=== PATIENT | male | born 1970 | race African-American/Black ===

== ENCOUNTER 2022-02-11 04:00 | Emergency (ER) | payer MEDICAID ==
[~2022-02-11] VITALS: Ht 185.4 cm; Wt 93.4 kg
[2022-02-11 04:03] VITALS: BP 133/53
--- NOTE | 2022-02-11 04:03 | NUR ---
Dr. Garay at Chair B to exam patient.
--- NOTE | 2022-02-11 04:03 | NUR ---
Patient BIB by Tahmina TILLMAN. C/O pre-book x today. Patient denies pain, no SOB, no N/V/D. PMHx; Denies, Sx: DENIES/
== END 2022-02-11 04:10 ==
LOC: MED 04:00
DX: F10.129 Alcohol abuse with intoxication, unspecified (principal); Z02.89 Encounter for other administrative examinations; Y90.9 Presence of alcohol in blood, level not specified
CPT/HCPCS: 99283

== ENCOUNTER 2022-04-21 08:29 | Emergency (ER) | payer MEDICAID ==
[~2022-04-21] VITALS: Ht 185.4 cm; Wt 113.4 kg
[2022-04-21 08:30] VITALS: BP 133/75
--- NOTE | 2022-04-21 10:51 | NUR ---
PATIENT LEFT WITHOUT BEING SEEN BY DR. VARGAS. NO FURTHER CARE PROVIDED FOR PATIENT.
== END 2022-04-21 10:51 | disposition left against medical advice (07) ==
LOC: MED 08:29
DX: R46.89 Other symptoms and signs involving appearance and behavior (principal); Z53.21 Procedure and treatment not carried out due to patient leaving prior to being seen by health care provider

== ENCOUNTER 2023-06-11 14:17 | Emergency (ER) | payer MEDICAID ==
[~2023-06-11] VITALS: Ht 180.3 cm; Wt 70.8 kg
[2023-06-11 14:20] VITALS: BP 125/82; PULSE 65; RESP 17; TEMP 97.6; O2SAT 99
[2023-06-11] MEDS ORDERED: NACL 0.9% 1,000 ML IV ONE (14:30)
== END 2023-06-11 15:04 | disposition left against medical advice (07) ==
LOC: MED 14:17
DX: F10.129 Alcohol abuse with intoxication, unspecified (principal); Y90.9 Presence of alcohol in blood, level not specified
CPT/HCPCS: 71045; 93005; 99283

== ENCOUNTER 2023-07-13 04:40 | Emergency (ER) | payer MEDICAID ==
[~2023-07-13] VITALS: Ht 185.4 cm; Wt 79.4 kg
[2023-07-13 04:52] VITALS: BP 109/60; PULSE 80; RESP 18; TEMP 98.4; O2SAT 99
[2023-07-13] MEDS ORDERED: KETOROLAC 60 MG/2 ML VIAL IM ONE (05:00)
[2023-07-13] MEDS ORDERED: PENI-319 PO (05:13)
[2023-07-13] MEDS ORDERED: IBUP-2213 PO (05:13)
[2023-07-13 06:06] VITALS: BP 109/60; PULSE 80; RESP 18; TEMP 98.4; O2SAT 99
== END 2023-07-13 06:06 | disposition home or self-care (01) ==
LOC: MED 04:40
DX: K04.7 Periapical abscess without sinus (principal); F17.200 Nicotine dependence, unspecified, uncomplicated
CPT/HCPCS: 96372; 99283; J1885

== ENCOUNTER 2023-08-30 20:40 | Emergency (ER) | payer MEDICAID ==
[~2023-08-30] VITALS: Ht 182.9 cm; Wt 72.6 kg
[2023-08-30 20:40] VITALS: BP 125/84; PULSE 80; RESP 17; TEMP 97.6; O2SAT 99
[~2023-08-30 20:40] MED LIST: IBUP-2213 PO; PENI-319 PO
[2023-08-30] MEDS ORDERED: ACETAMINOPHEN 325 MG TAB PO ONE (20:50)
[2023-08-30 21:09] LABS: BASOPHILS # (AUTO) 0.1 K/uL (0.00-0.22); BASOPHILS % (AUTO) 0.5 % (0.0-2.0); EOSINOPHILS # (AUTO) 0.1 K/uL (0-0.4); EOSINOPHILS % (AUTO) 1.1 % (0.0-4.0); HEMATOCRIT 37.9 % (36-52); HEMOGLOBIN 12.6 g/dL (12.0-18.0); LYMPHOCYTES # (AUTO) 0.9 K/uL (2.0-11.5); LYMPHOCYTES % (AUTO) 8.8 % (20.5-51.1); MEAN CORPUSCULAR HEMOGLOBIN 32 pg (27-31); MEAN CORPUSCULAR HGB CONC 33 g/dL (33-37); MEAN CORPUSCULAR VOLUME 94.9 fL (80-94); MONOCYTES # (AUTO) 1.1 K/uL (0.8-1.0); MONOCYTES % (AUTO) 10.5 % (1.7-9.3); NEUTROPHILS # (AUTO) 8.5 K/uL (1.8-7.7); NEUTROPHILS % (AUTO) 79.1 % (42.2-75.2); PLATELET COUNT (AUTO) 201 K/uL (140-450); RED BLOOD CELL COUNT(AUTO) 3.99 MIL/uL (4.20-6.10); RED CELL DISTRIBUTION WIDTH 13.1 % (11.6-13.7); WHITE BLOOD COUNT (AUTO) 10.8 K/uL (4.8-10.8)
[2023-08-30 21:17] LABS: ANION GAP 13.3 (8-16); CALCIUM 8.9 mg/dL (8.5-10.1); CARBON DIOXIDE 29.7 mmol/L (21-32); CREATININE 0.8 mg/dL (0.6-1.3)
[2023-08-30] MEDS ORDERED: QUEtiapine FUMARATE 25 MG TAB PO STA (23:13)
[2023-08-30 23:28] LABS: ALCOHOL, BLOOD < 3 mg/dL (<10); SALICYLATE 3.5 mg/dL (2.8-20.0)
[2023-08-30 23:34] LABS: AMPHETAMINE, URINE POSITIVE ng/ml (NEG <=1000); BARBITURATE, URINE NEGATIVE ng/ml (NEG <=200); BENZODIAZEPINE, URINE NEGATIVE ng/mL (NEG <=200); CANNABINOID, URINE NEGATIVE ng/mL (NEG <=50); COCAINE, URINE NEGATIVE ng/mL (NEG <=300)
[2023-08-30 23:35] LABS: OPIATE, URINE NEGATIVE ng/mL (NEG <=2000); PHENCYCLIDINE SCREEN,URINE NEGATIVE ng/mL (NEG <=25)
[2023-08-31 07:20] VITALS: O2SAT 97
[2023-08-31 08:20] VITALS: O2SAT 97
[2023-08-31] MEDS ORDERED: FLUoxetine 10 MG CAP PO SCH (09:00)
[2023-08-31 11:20] VITALS: O2SAT 98
[2023-08-31 16:21] VITALS: O2SAT 98
[2023-08-31 17:35] VITALS: BP 128/78; PULSE 90; RESP 16; TEMP 98; O2SAT 99
[2023-08-31] MEDS ORDERED: QUEtiapine FUMARATE 25 MG TAB PO SCH (21:00)
== END 2023-08-31 17:35 ==
LOC: MED 20:40
DX: J02.9 Acute pharyngitis, unspecified (principal); R45.851 Suicidal ideations; Z20.822 Contact with and (suspected) exposure to COVID-19; F15.90 Other stimulant use, unspecified, uncomplicated; Z04.6 Encounter for general psychiatric examination, requested by authority; Z79.1 Long term (current) use of non-steroidal anti-inflammatories (NSAID); Z79.2 Long term (current) use of antibiotics
CPT/HCPCS: 36415; 71045; 80048; 80305; 83690; 85025; 87426; 99285; G0480; G0482

== ENCOUNTER 2023-11-11 12:44 | Emergency (ER) | payer MEDICAID ==
[~2023-11-11] VITALS: Ht 172.7 cm; Wt 81.6 kg
[2023-11-11 12:44] VITALS: BP 142/96; PULSE 88; RESP 19; TEMP 97.7; O2SAT 98
== END 2023-11-11 17:11 | disposition left against medical advice (07) ==
LOC: MED 12:44
DX: T73.0XXA Starvation, initial encounter (principal); M79.18 Myalgia, other site; Z53.21 Procedure and treatment not carried out due to patient leaving prior to being seen by health care provider; X58.XXXA Exposure to other specified factors, initial encounter
CPT/HCPCS: 99281

== ENCOUNTER 2024-06-28 22:13 | Emergency (ER) | payer MEDICAID ==
[~2024-06-28] VITALS: Ht 185.4 cm; Wt 72.6 kg
[2024-06-28 22:17] VITALS: BP 125/78; PULSE 72; RESP 16; TEMP 97.4; O2SAT 100
[2024-06-28] MEDS ORDERED: ACET500T99 PO (23:16)
[2024-06-28] MEDS: KETOROLAC 30 MG/ML VIAL IM ONE (23:35)
== END 2024-06-28 23:40 | disposition home or self-care (01) ==
LOC: MED 22:13
DX: M79.672 Pain in left foot (principal); M79.671 Pain in right foot; F15.10 Other stimulant abuse, uncomplicated; Z79.899 Other long term (current) drug therapy; Z79.2 Long term (current) use of antibiotics
CPT/HCPCS: 96372; 99283; J1885

== ENCOUNTER 2024-07-17 22:25 | Emergency (ER) | payer MEDICAID ==
[~2024-07-17] VITALS: Ht 185.4 cm; Wt 77.1 kg
[~2024-07-17 22:25] MED LIST changes: +ACET500T99 PO
[2024-07-18 01:55] VITALS: PULSE 68; RESP 16; TEMP 96.8; O2SAT 100
[2024-07-18 03:37] LABS: BASOPHILS # (AUTO) 0.1 K/uL (0.00-0.22); BASOPHILS % (AUTO) 0.5 % (0.0-2.0); EOSINOPHILS # (AUTO) 0.2 K/uL (0-0.4); EOSINOPHILS % (AUTO) 1.6 % (0.0-4.0); HEMATOCRIT 41.7 % (36-52); LYMPHOCYTES # (AUTO) 1.5 K/uL (2.0-11.5); LYMPHOCYTES % (AUTO) 14.7 % (20.5-51.1); MEAN CORPUSCULAR HEMOGLOBIN 32 pg (27-31); MEAN CORPUSCULAR HGB CONC 34 g/dL (33-37); MEAN CORPUSCULAR VOLUME 95.3 fL (80-94); MONOCYTES # (AUTO) 1.3 K/uL (0.8-1.0); MONOCYTES % (AUTO) 12.9 % (1.7-9.3); NEUTROPHILS % (AUTO) 70.3 % (42.2-75.2); PLATELET COUNT (AUTO) 260 K/uL (140-450); RED BLOOD CELL COUNT(AUTO) 4.37 MIL/uL (4.20-6.10)
[2024-07-18 03:48] LABS: ANION GAP 9.8 (8-16); CALCIUM 8.9 mg/dL (8.5-10.1); CARBON DIOXIDE 30.9 mmol/L (21-32); CREATININE 1.2 mg/dL (0.6-1.3); POTASSIUM 3.7 mmol/L (3.5-5.1)
[2024-07-18] MEDS ORDERED: PENI500T20 PO (03:52)
== END 2024-07-18 04:33 | disposition home or self-care (01) ==
LOC: MED 22:25
DX: K08.89 Other specified disorders of teeth and supporting structures (principal); Z59.00 Homelessness unspecified; Z76.5 Malingerer [conscious simulation]; Z79.899 Other long term (current) drug therapy
CPT/HCPCS: 36415; 71045; 80048; 85025; 99284